=== PATIENT | female | born 1985 | race Caucasian/White ===

== ENCOUNTER 2018-07-22 05:59 | Inpatient (IN) | payer BC ==
[~2018-07-22 05:59] MED LIST: Buffered Lidocaine 0.9% SYRIN* 5 ML/SYR SYRINGE INTRADERM ONE
[2018-07-22] MEDS ORDERED: Famotidine IV* 10 MG/ML 2 ML (20 mg) IV ONE (06:00)
[2018-07-22] MEDS ORDERED: ceFOXitin 2 GM IVPREMIX* 2 GM/50 ML BAG ONE (06:40)
[2018-07-22] MEDS ORDERED: Morphine PF AMP (0.5MG/ML)* 5 MG/10 ML AMP ONE (07:33)
[2018-07-22] MEDS ORDERED: Midazolam* 1 MG/ML 5 ML VIAL (5 MG) ONE (07:33)
[2018-07-22] MEDS ORDERED: fentaNYL* 50 MCG/ML 2 ML VIAL (100 MCG VIAL) ONE (07:33)
[2018-07-22] MEDS ORDERED: KETAMINE HCL* 50 MG/ML 10 ML VIAL ONE (07:33)
[2018-07-22] MEDS ORDERED: Nalbuphine* 10 MG/ML 1 ML VIAL IV PRN (08:24)
[2018-07-22] MEDS ORDERED: DiMENhydriNATE IV* 50 MG/ML VIAL IV PUSH PRN (08:24)
[2018-07-22] MEDS ORDERED: Ondansetron INJ* 2 MG/ML VIAL IV PRN (08:24)
[2018-07-22] MEDS ORDERED: Naloxone* 2 MG in NS 0.9% 250 ML* 250 ML IV PRN (08:24)
[2018-07-22] MEDS ORDERED: PROCHLORPERAZINE INJ 5 MG/ML 2 ML VIAL IV PRN (08:24)
[2018-07-22] MEDS ORDERED: Naloxone* 0.4 MG/ML 1 ML VIAL IV PRN ×2 (08:24→08:29)
[2018-07-22] MEDS ORDERED: fentaNYL* 50 MCG/ML 2 ML VIAL (100 MCG VIAL) IV PRN (08:29)
[2018-07-22] MEDS ORDERED: OXYTOCIN* 10 UNITS/ML 1 ML VIAL ONE (08:45)
[2018-07-22] MEDS ORDERED: Ketorolac INJ* 30 MG/ML 1 ML VIAL ONE (08:45)
[2018-07-22] MEDS ORDERED: Ondansetron INJ* 2 MG/ML VIAL ONE (08:45)
[2018-07-22] MEDS ORDERED: Dexamethasone IV* 4 MG/ML 1 ML (4 MG) ONE (08:45)
[2018-07-22] MEDS ORDERED: EPHEDrine (Pressors)* 50 MG/ML VIAL ONE (08:45)
[2018-07-22] MEDS ORDERED: Bupivacaine-MPF SPINAL* 7.5 MG/ML - 2ML AMP ONE (08:46)
[2018-07-22] MEDS ORDERED: Scopolamine 1.5 mg* PATCH ONE (08:46)
[2018-07-22] MEDS ORDERED: Bupivacaine 0.25% SDV PF* 10 ML VIAL INJ ONE (08:46)
[2018-07-22] MEDS ORDERED: Phenylephrine INJ* 10 MG/ML 1 ML VIAL (10 MG) ONE (08:46)
[2018-07-22] MEDS ORDERED: Witch Hazel PAD* JAR TOPICAL PRN (09:02)
[2018-07-22] MEDS ORDERED: Dibucaine 1% 28.35 GM TUBE PR PRN (09:02)
[2018-07-22] MEDS ORDERED: Zolpidem TAB* 5 MG PO PRN (09:02)
[2018-07-22] MEDS ORDERED: Glycerin ADULT SUPP PR PRN (09:02)
[2018-07-22] MEDS ORDERED: Oxytocin in LR* 20 UNITS/1,000 ML BAG IVPB SCH (10:00)
[2018-07-22] MEDS: Ketorolac INJ* 30 MG/ML 1 ML VIAL IV PRN ×2 (14:53→21:11)
[2018-07-22] MEDS: oxyCODONE/Acetamin 5/325 MG* TAB PO PRN ×2 (14:54→19:39)
[2018-07-22] MEDS: Docusate CAP* 100 MG PO SCH ×2 (14:54→21:11)
[2018-07-22] MEDS: Simethicone TAB* 80 MG TAB.CHEW PO SCH ×3 (14:54→21:11)
[2018-07-23] MEDS: oxyCODONE/Acetamin 5/325 MG* TAB PO PRN ×6 (00:04→20:16)
[2018-07-23] MEDS ORDERED: Acetaminophen TAB* 325 MG PO PRN (00:24)
[2018-07-23] MEDS ORDERED: oxyCODONE/Acetamin 5/325 MG* TAB PO PRN (00:24)
--- NOTE | 2018-07-23 01:34 | OP ---
DATE OF OPERATION: 07/21/18 - ROOM #116 DATE OF : 85 SURGEON: Star Guillory MD SORORITY SUPERVISOR: Rosie Cardoza CNM ANESTHESIA: Spinal. PRE-OP DIAGNOSIS: Previous section. POST-OP DIAGNOSES: Previous section plus macrosomia. OPERATIVE PROCEDURE: Low transverse section. ESTIMATED BLOOD LOSS: 600 cc. SPECIMEN: None. FINDINGS: On , there was normal-appearing fallopian tubes and ovaries. There is a left paratubal cyst approximately 2 cm. The lower uterine segment was thin. DESCRIPTION OF PROCEDURE: The patient identified and procedure identified as a low transverse section. The patient was taken to the operating room and prepped and draped in the usual fashion in the left lateral recumbent position under spinal anesthesia. A Pfannenstiel incision was made in the old incision and the scar was excised; a keloid that had formed before. It was carried down through fat, fascia, and peritoneum. A bladder flap was created via sharp dissection. A transverse incision was made in the low uterine segment , extended laterally using blunt dissection. The above was delivered through the incision with ease. The cord was doubly clamped and cut and the was handed to the waiting resident services director. Cord blood was obtained. Placenta delivered spontaneously. The uterus was wiped out with a wet lap sponge. Uterine incision was then closed using 0 Polysorb in a running fashion. A second layer was used to imbricate the first layer. Good hemostasis was verified and achieved with 0 Polysorb [id number] sutures. The uterus was placed back into the abdominal cavity. Good hemostasis was again verified. The peritoneum was then closed using 3-0 Polysorb in a running fashion. Hemostasis was achieved in the subrectus layer. The fascia was closed using 0 Polysorb in a running fashion. Hemostasis was achieved in the subcu and the space. Copious irrigation was utilized and suctioned out. space was closed using 3-0 Polysorb and the skin was closed with 4-0 Monocryl in a subcuticular fashion. Mastisol and Steri-Strips were applied. All sponge and instrument counts were correct and the patient returned to recovery room in stable condition. [id number]/[facility] #: [id number] [facility] SHOREKaleigh
[2018-07-23] MEDS: Ketorolac INJ* 30 MG/ML 1 ML VIAL IV PRN (02:59)
[2018-07-23 08:38] LABS: ABS Basophils 0 10^3/ul (0-0.2); ABS Eosinophils 0 10^3/ul (0-0.6); ABS Monocytes 0.6 10^3/ul (0-0.8); ABS Neutrophils 5.9 10^3/ul (1.5-7.7); ABS Nucleated RBC 0 10^3/ul; Eosinophil % 0.2 %; Hematocrit 34 % (35-47); Hemoglobin 11.8 g/dl (12.0-16.0); Lymphocyte % 31.8 %; Mean Corpuscular HGB Conc 35 g/dl (31-36); Mean Corpuscular Hemoglobin 33 pg (27-31); Mean Corpuscular Volume 95 fL (80-97); Mean Platelet Volume 7.8 fL (7.4-10.4); Nucleated Red Blood Cells % 0; Platelet Count 183 10^3/ul (150-450); Red Blood Count 3.58 10^6/ul (4.00-5.40); Red Cell Distribution Width 14 % (10.5-15); White Blood Count 9.6 10^3/ul (3.5-10.8)
[2018-07-23] MEDS: Docusate CAP* 100 MG PO SCH ×3 (08:42→20:15)
[2018-07-23] MEDS: Simethicone TAB* 80 MG TAB.CHEW PO SCH ×4 (08:42→20:15)
[2018-07-23] MEDS: Ibuprofen TAB* 600 MG PO PRN ×3 (08:43→20:15)
[2018-07-23] MEDS ORDERED: Ferrous Gluconate TAB* 324 MG TAB PO SCH (09:00)
[2018-07-24] MEDS: oxyCODONE/Acetamin 5/325 MG* TAB PO PRN ×3 (00:04→09:34)
[2018-07-24] MEDS: Ibuprofen TAB* 600 MG PO PRN ×2 (02:16→08:28)
[2018-07-24] MEDS: Simethicone TAB* 80 MG TAB.CHEW PO SCH (08:28)
[2018-07-24 08:37] VITALS: BP 115/75
[2018-07-24] MEDS: Docusate CAP* 100 MG PO SCH (09:33)
[2018-07-25] MEDS ORDERED: Scopolamine PATCH Remove* 1 NOTE MISC PATCH OFF PRN (08:26)
== END 2018-07-24 11:39 | disposition home or self-care (01) | DRG 540 ==
LOC: MCHOB 05:59
PROVIDERS: ADMIT Obstetrics & Gynecology; ATTEND Obstetrics & Gynecology
PROC: 10D00Z1 Extraction of Products of Conception, Low, Open Approach (ICD-10-PCS; principal; 2018-07-22 07:45)
DX: O34.211 Maternal care for low transverse scar from previous cesarean delivery (principal); O99.824 Streptococcus B carrier state complicating childbirth; Z3A.39 39 weeks gestation of pregnancy; Z37.0 Single live birth
CPT/HCPCS: 36415; 85025; A9270-GY; J0694; J1100; J1885; J2250; J2405; J2590; J3010; J3490